=== PATIENT | female | born 1995 | race Caucasian/White ===

== ENCOUNTER 2018-11-04 21:53 | Emergency (ER) | payer OTHER ==
[2018-11-04 23:33] LABS: Basophils % (Auto) 0.3 % (0.0-1.8); Eosinophils # (Auto) 0.1 K/mm3 (0.0-0.4); Hemoglobin 13.1 gm/dl (10.1-14.3); Lymphocytes # (Auto) 2.9 K/mm3 (1.2-5.4); Lymphocytes % (Auto) 27.2 % (13.4-35.0); Mean Corpuscular HGB Conc 35 % (30-34); Mean Corpuscular Volume 83 fl (79-97); Monocytes # (Auto) 0.8 K/mm3 (0.0-0.8); Monocytes % (Auto) 7.7 % (0.0-7.3); Platelet Count 239 K/mm3 (140-440); Red Blood Count 4.56 M/mm3 (3.65-5.03); Red Cell Distribution Width 13.2 % (13.2-15.2)
[2018-11-04 23:51] LABS: Alanine Aminotransferase 19 units/L (7-56); Albumin 4.1 g/dL (3.9-5); BUN/Creatinine Ratio 16; Blood Urea Nitrogen 8 mg/dL (7-17); Calcium 9.5 mg/dL (8.4-10.2); Hemolysis Index 14
[2018-11-05 00:01] LABS: Bilirubin,Urine NEG (Negative); Blood,Urine NEG (Negative); Color,Urine Yellow (Yellow); Protein,Urine <15 mg/dL mg/dL (Negative); Urobilinogen,Urine < 2.0 mg/dL (<2.0); WBC,Urine < 1.0 /HPF (0.0-6.0)
[2018-11-05] MEDS ORDERED: TYLENOL PO ONE (00:55)
--- NOTE | 2018-11-05 03:11 | Ultrasound Report ---
OBSTETRIC ULTRASOUND INDICATION: Vaginal bleeding COMPARISON: No prior relevant imaging studies are available for comparison. TECHNIQUE: Transabdominal imaging was performed. FINDINGS: Single viable intrauterine is identified. lie is currently transverse. heart ra te is 145bpm. measurements are as follows: Biparietal diameter 3.1 cm, 15 weeks 5 days Head circumference 11.6 cm, 15 weeks 5 days Abdominal circumference 10.3 cm, 16 weeks 2 days Femur length 2.0 cm, 16 weeks 2 days Fetus is in the percentile for weight. Amniotic fluid index is within normal limits. No placental abnormalities are seen. There is a grade 0 posterior placenta. The cervix is closed with a length of 3.4 cm. CONCLUSION: Single viable intrauterine currently in transverse position with sonographic gestational ag e 15 weeks, 6 days. Amniotic fluid index is within normal limits. Cervix appears closed. Signer Name: Haider Torres MD Signed: 11/05/2018 3:07 AM Workstation Name: [id number]
--- NOTE | 2018-11-05 04:04 | Emergency Department Report ---
ED Female HPI - General Chief complaint: Abdominal Pain Stated complaint: 18WEEKS PREG. LOWER ABDOMINAL PAIN Time Seen by Provider: 11/05/18 00:40 Source: patient Mode of arrival: Ambulatory Limitations: No Limitations - History of Present Illness Initial comments: Patient is a A1 and running out female who is approximately 18 weeks gestation and presents to the ED with complaint of acute onset persistent pleuritic pain for last 24 hours after having sexual intercourse at home. Patient states that the pain has been persistent and worse with any movement. Patient denies vaginal bleeding, fever, chills, nausea, vomiting, diarrhea, dizziness, back pain, dysuria, urinary frequency and urgency, vaginal discharge, traumatic injury or heavy lifting. MD Complaint: pelvic pain -: Sudden, hour(s) (24) Location: suprapubic Radiation: non-radiating Severity: severe Severity scale (0 -10): 7 Quality: cramping, sharp, aching Consistency: constant Improves with: none Worsens with: intercourse, movement Associated Symptoms: denies other symptoms, abdominal pain. denies: vaginal discharge, nausea/vomiting, fever/chills, headaches, loss of appetite, dysuria, hematuria, rash, seizure, shortness of breath, syncope, weakness - Related Data Sexually active: Yes : 3 Para: 1 A: 1 Allergies Allergy/AdvReac Type Severity Reaction Status Date / Time No Known Allergies Allergy Unverified 11/04/18 22:59 ED Review of Systems ROS: Stated complaint: 18WEEKS PREG. LOWER ABDOMINAL PAIN Other details as noted in HPI Constitutional: denies: chills, fever Eyes: denies: eye pain, eye discharge, vision change ENT: denies: ear pain, throat pain Respiratory: denies: cough, shortness of breath, wheezing Cardiovascular: denies: chest pain, palpitations Endocrine: no symptoms reported Gastrointestinal: abdominal pain (suprapubic). denies: nausea, diarrhea Genitourinary: denies: urgency, dysuria, discharge Musculoskeletal: denies: back pain, joint swelling, arthralgia Skin: denies: rash, lesions Neurological: denies: headache, weakness, paresthesias Psychiatric: denies: anxiety, depression Hematological/Lymphatic: denies: easy bleeding, easy bruising ED Past Medical Hx - Past Medical History Previous Medical History?: No - Surgical History Past Surgical History?: No - Social History Smoking Status: Never Smoker ED Physical Exam - General Limitations: No Limitations General appearance: alert, in no apparent distress - Head Head exam: Present: atraumatic, normocephalic, normal inspection - Eye Eye exam: Present: normal appearance, PERRL, EOMI - ENT ENT exam: Present: normal exam, normal orophraynx, mucous membranes moist, TM's normal bilaterally, normal external ear exam - Neck Neck exam: Present: normal inspection, full ROM. Absent: tenderness - Respiratory Respiratory exam: Present: normal lung sounds bilaterally. Absent: respiratory distress, wheezes, rales, stridor, chest wall tenderness, accessory muscle use, decreased breath sounds, prolonged expiratory - Cardiovascular Cardiovascular Exam: Present: regular rate, normal rhythm, normal heart sounds. Absent: systolic murmur, diastolic murmur, rubs, gallop - GI/Abdominal GI/Abdominal exam: Present: soft, tenderness (suprapubic moderately), normal bowel sounds. Absent: guarding, rebound, hyperactive bowel sounds, hypoactive bowel sounds, organomegaly - Rectal Rectal exam: Present: deferred - Bi-manual exam: Present: other (Pelvic exam deferred, patient declined) - Extremities Exam Extremities exam: Present: normal inspection, full ROM, normal capillary refill - Back Exam Back exam: Present: normal inspection, full ROM. Absent: CVA tenderness (L), muscle spasm, vertebral tenderness - Neurological Exam Neurological exam: Present: alert, oriented X3, CN II-XII intact, normal gait. Absent: motor sensory deficit, reflexes normal - Psychiatric Psychiatric exam: Present: normal affect, normal mood - Skin Skin exam: Present: warm, dry, intact, normal color. Absent: rash ED Course Vital Signs 11/04/18 11/05/18 22:50 01:10 Temperature 98.1 F Pulse Rate 103 H Respiratory 18 16 Rate Blood Pressure 133/83 O2 Sat by Pulse 100 Oximetry - Reevaluation(s) Reevaluation #1: 11/05/18 04:01 Patient is alert and oriented 3 and is not in distress. Patient is to use any Tylenol in the ED and lab test results were reviewed and are unremarkable except for a significant amount of 20,812. Urinalysis is unremarkable. Transvaginal and pelvic ultrasound shows a single IUP currently in transverse position with the sonographic gestational age of 15 weeks and 6 days. The amniotic fluid index is within normal limits and the cervix appears closed. The heart rate is 145 bpm on reevaluation, patient's pain is well controlled with medications, and patient advised to maintain a complete pelvic rest and follow- up with our DAYCARE WORKER physician in 3-5 days for reevaluation. Patient advised to return to the ED immediately if symptoms get worse. ED Medical Decision Making - Lab Data Result diagrams: 11/04/18 23:08 11/04/18 23:08 - Radiology Data Radiology results: report reviewed, image reviewed Pelvic US: Single IUP in transverse position with sonographic gestational age of 15 weeks and 6 days. The amniotic fluid index is within normal limits and the cervix appears closed. The heart rate is 145 bpm. - Medical Decision Making Patient is alert and oriented 3 and is not in distress. Patient is to use any Tylenol in the ED and lab test results were reviewed and are unremarkable except for a significant amount of 20,812. Urinalysis is unremarkable. Transvaginal and pelvic ultrasound shows a single IUP currently in transverse position with the sonographic gestational age of 15 weeks and 6 days. The amniotic fluid index is within normal limits and the cervix appears closed. The heart rate is 145 bpm on reevaluation, patient's pain is well controlled with medications, and patient advised to maintain a complete pelvic rest and follow- up with our DAYCARE WORKER physician in 3-5 days for reevaluation. Patient advised to return to the ED immediately if symptoms get worse. - Differential Diagnosis Abdominal pain in ; Threatened miscarriage Critical care attestation.: If time is entered above; I have spent that time in minutes in the direct care of this critically ill patient, excluding procedure time. ED Disposition Clinical Impression: Threatened miscarriage, Abdominal pain during in second trimester Disposition: DC-01 TO HOME OR SELFCARE Is pt being admited?: No Does the pt Need Aspirin: No Condition: Stable Instructions: Abdominal Pain (ED), Threatened Miscarriage (ED) Additional Instructions: Take medications with food, drink plenty of fluids and follow up with your primary care physician or DAYCARE WORKER physician in 2 days for reevaluation. Maintain a complete pelvic rest with no sexual activity or heavy lifting until evaluated by the DAYCARE WORKER physician on Referrals: IRWIN GUTIERRES MD [Staff Physician] - 3-5 Days Time of Disposition: 04:07 Print Language: SPANISH
[2018-11-05 04:46] VITALS: BP 108/69
== END 2018-11-05 04:45 | disposition home or self-care (01) ==
LOC: ED 21:53
DX: O20.0 Threatened abortion (principal); Z3A.15 15 weeks gestation of pregnancy
CPT/HCPCS: 36415; 76805; 80053; 81001; 83690; 84702; 85025

== ENCOUNTER 2019-04-07 19:15 | Inpatient (IN) | payer OTHER ==
[2019-04-07] MEDS ORDERED: TERBUTALINE 1 MG/1 ML INJ SUB-Q PRN (22:37)
[2019-04-07] MEDS ORDERED: ePHEDrine SULFATE 50 MG/1 ML INJ IV PRN (22:37)
[2019-04-07] MEDS ORDERED: AMPICILLIN/NS 2 GM/100 ML 2 GM/100 ML BAG IV ONE (22:37)
[2019-04-07] MEDS ORDERED: LIDOCAINE (2%) 20 MG/1 ML VIAL 20 ML MDV INFILTRATI ONE (22:37)
[2019-04-07] MEDS ORDERED: fentaNYL 100 MCG/2 ML INJ IV PRN (22:37)
--- NOTE | 2019-04-07 22:45 | History and Physical Report ---
History of Present Illness Date of examination: 04/07/19 Date of admission: 04/07/2019 Chief complaint: Contractions History of present illness: 23 year old presents to L&D with contractions. Patient denies leaking of fluid or vaginal bleeding. Patient reports active movement. Patient received care at [facility] and she brings records with her. LMP 07/12/2018. EDC 04/18/19. significant for the following: history of delivery at 34 weeks with a prior , LSIL pap, history of previous infant with cardiac diagnosis (child from heart disease, possible congenital per chart). labs are as follows: O+, antibody screen negative, rubella immune, hepatitis B surface antigen negative, RPR negative, HIV negative, GC negative, CT negative, GBS unknown (no result on chart), glucose WNL, pap LSIL. 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 denies: chlamydia, gonorrhea, hepatitis B, hepatitis C, herpes, HIV, syphilis, trichomonas Family/Genetic History: diabetes Social history: lives with family, full code. denies: smoking, alcohol abuse, prescription drug abuse, IV drug use - Obstetrical History Expected Date of Delivery: 04/18/19 Actual Gestation: 38 Week(s) 3 Day(s) : 3 Para: 2 Hx # Term Pregnancies: 1 Number of Pregnancies: 1 Spontaneous Abortions: 0 Induced : 0 Number of Living Children: 1 Medications and Allergies Allergies Allergy/AdvReac Type Severity Reaction Status Date / Time No Known Allergies Allergy Verified 04/07/19 22:40 Active Meds: Active Medications Ephedrine Sulfate (Ephedrine Sulfate) 10 mg IV Q2M PRN PRN Reason: Hypotension Fentanyl (Sublimaze) 100 mcg IV Q2H PRN PRN Reason: Labor Pain Oxytocin/Sodium Chloride (Pitocin/Ns 20 Unit/1000ml Drip) 20 units in 1,000 mls @ 125 mls/hr IV DIRECT HILARY Lactated Ringer's (Lactated Ringers) 1,000 mls @ 125 mls/hr IV DIRECT HILARY Ampicillin Sodium (Ampicillin/Ns 2 Gm/100 Ml) 2 gm in 100 mls @ 100 mls/hr IV ONCE ONE; Protocol Stop: 04/07/19 23:36 Ampicillin Sodium (Ampicillin/Ns 1 Gm/50 Ml) 1 gm in 50 mls @ 100 mls/hr IV Q4HR HILARY; Protocol Terbutaline Sulfate (Brethine) 0.25 mg SUB-Q ONCE PRN PRN Reason: Hyperstimulation/Hypertonicity Review of Systems All systems: negative (contractions) - Physical Exam Abdomen: Positive: normal appearance, soft. Negative: distention, tenderness, guarding, rigidity Genitourinary (Female): Positive: normal external genitalia, normal perenium. Negative: perineal/vulvar lesions Vagina: Positive: normal moisture Uterus: Positive: enlarged. Negative: tender Anus/Rectum: Positive: normal perianal skin, hemorrhoids Extremities: Positive: normal. Negative: tenderness, edema - Obstetrical FHR: category 1 Uterine Contraction Monitor Mode: External Cervical Dilatation: 4 Cervical Effacement Percentage: 80 (BBOW) station: -2 Results All other labs normal. Assessment and Plan A: at 38 weeks, 3 days gestation. Active labor. GBS unknown. P: Admit. Continuous EFM. GBS prophylaxis. Anticipate .
[2019-04-07] MEDS ORDERED: LACTATED RINGERS 1,000 ML IV SCH (23:00)
[2019-04-07] MEDS ORDERED: OXYTOCIN 20 UNIT/1000ML DRIP 20 UNITS/1,000 ML BAG IV SCH (23:00)
[2019-04-08 00:23] LABS: Hematocrit 39.2 % (30.3-42.9); Hemoglobin 13.2 gm/dl (10.1-14.3); Mean Corpuscular HGB Conc 34 % (30-34); Mean Corpuscular Volume 85 fl (79-97); Platelet Count 193 K/mm3 (140-440); Red Blood Count 4.61 M/mm3 (3.65-5.03); Red Cell Distribution Width 14.2 % (13.2-15.2)
[2019-04-08 00:44] LABS: Albumin 3.6 g/dL (3.9-5); BUN/Creatinine Ratio 15; Blood Urea Nitrogen 6 mg/dL (7-17); Calcium 9.7 mg/dL (8.4-10.2); Hemolysis Index 109
[2019-04-08 02:22] LABS: Alanine Aminotransferase 14 units/L (7-56)
[2019-04-08 02:49] LABS: Uric Acid 4.8 mg/dL (3.5-7.6)
[2019-04-08] MEDS: AMPICILLIN/NS 1 GM/50 ML 1 GM/50 ML BAG IV SCH ×3 (04:52→13:42)
[2019-04-08] MEDS ORDERED: LIDOCAINE (2%) 20 MG/1 ML VIAL 20 ML MDV INFILTRATI ONE (08:30)
[2019-04-08] MEDS ORDERED: ePHEDrine SULFATE 50 MG/1 ML INJ IV PRN ×2 (08:30→15:34)
[2019-04-08] MEDS ORDERED: TERBUTALINE 1 MG/1 ML INJ IVP PRN (08:30)
[2019-04-08] MEDS ORDERED: TERBUTALINE 1 MG/1 ML INJ SUB-Q PRN (08:30)
--- NOTE | 2019-04-08 08:34 | Event Note ---
Date: 04/08/19 Cervix unchanged at last exam. Will augment labor with Pitocin.
[2019-04-08] MEDS ORDERED: OXYTOCIN DRIP 30 UNITS/500 ML BAG IV SCH (09:00)
[2019-04-08] MEDS ORDERED: OXYTOCIN 20 UNIT/1000ML DRIP 20 UNITS/1,000 ML BAG IV SCH (09:00)
[2019-04-08] MEDS: OXYTOCIN DRIP 30 UNITS/500 ML BAG IV SCH ×2 (10:08→10:40)
[2019-04-08 11:51] LABS: Hematocrit 38.4 % (30.3-42.9); Hemoglobin 12.8 gm/dl (10.1-14.3); Mean Corpuscular HGB Conc 33 % (30-34); Mean Corpuscular Volume 86 fl (79-97); Platelet Count 177 K/mm3 (140-440); Red Blood Count 4.49 M/mm3 (3.65-5.03)
[2019-04-08] MEDS ORDERED: NALOXONE 2 MG/2 ML INJ IV PRN (15:34)
--- NOTE | 2019-04-08 15:36 | Anesthesia Consultation ---
Anesthesia Consult and Med Hx Date of service: 04/08/19 - Airway Anesthetic Teeth Evaluation: Good ROM Head & Neck: Adequate Mental/Hyoid Distance: Adequate Mallampati Class: Class II Intubation Access Assessment: Probably Good - Pulmonary Exam CTA: Yes - Cardiac Exam Cardiac Exam: RRR - Pre-Operative Health Status ASA Pre-Surgery Classification: ASA2 Proposed Anesthetic Plan: Epidural - Pulmonary Hx Smoking: No Hx Asthma: No Hx Respiratory Symptoms: No SOB: No COPD: No Home Oxygen Therapy: No Hx Pneumonia: No Hx Sleep Apnea: No - Cardiovascular System Hx Hypertension: No Hx Coronary Artery Disease: No Hx Heart Attack/AMI: No Hx Angina: No Hx Percutaneous Transluminal Coronary Angioplasty (PTCA): No Hx Cardia Arrhythmia: No Hx Pacemaker: No Hx Internal Defibrillator: No Hx Valvular Heart Disease: No Hx Heart Murmur: No Hx Peripheral Vascular Disease: No - Central Nervous System Hx Neuromuscular Disorder: No Hx Seizures: No CVA: No Hx Back Pain: No Hx Psychiatric Problems: No - Gastrointestinal Hx Ulcer: No Hx Gastroesophageal Reflux Disease: No - Endocrine Hx Renal Disease: No Hx End Stage Renal Disease: No Hx Cirrhosis: No Hx Liver Disease: No Hx Insulin Dependent Diabetes: No Hx Non-Insulin Dependent Diabetes: No Hx Thyroid Disease: No Hx Hypothyroidism: No Hx Hyperthyroidism: No - Hematic Hx Anemia: No Hx Sickle Cell Disease: No - Other Systems Hx Alcohol Use: No Hx Substance Use: No Hx Cancer: No Hx Obesity: Yes
[2019-04-08] MEDS ORDERED: fentaNYL-BUPIV 2 MCG/ML-0.125% 200 MCG/100 ML BAG EPIDURAL SCH (16:00)
[2019-04-08] MEDS ORDERED: MAGNESIUM HYDROXIDE (MOM) ORAL LIQD UDC PO PRN (16:52)
[2019-04-08] MEDS ORDERED: WITCH HAZEL/ GLYCERIN PAD TP PRN (16:52)
[2019-04-08] MEDS ORDERED: LANOLIN/ZINC/DIMETHICONE (LANSINOH) 7 GM TP PRN (16:52)
--- NOTE | 2019-04-08 17:05 | Procedure Note ---
OB Delivery Note - Delivery Date of Delivery: 04/08/19 Surgeon: BESSY NICOLE Estimated blood loss: 200cc - Vaginal Delivery presentation: vertex Delivery position: OA Intrapartum events: none Delivery induction: none Delivery augmentation: rupture of membranes, pitocin Delivery monitor: external FHT, external uterine Route of delivery: Delivery placenta: spontaneous Delivery cord: 3 umbilical vessels Episiotomy: none Delivery laceration: none Anesthesia: none Delivery comments: Spontaneous vaginal delivery at 16:23 of liveborn female infant weighing 6 lb over intact perineum with apgars of 8/9. Nuchal cord times 1, manually reduced. Body cord. Baby placed skin to skin with mom immediately after . Spontaneous cry and respirations. Baby suctioned with bulb syringe and dried with warm towels. 3 vessel cord double clamped and cut after cessation of pulsation. Cord blood obtained. Spontaneous delivery of intact placenta and membranes by neely mechanism at 16:29. Pitocin to IV fluids after delivery of placenta. Fundus firm and midline. No lacerations noted. Vaginal sweep negative. Sponge count correct.
[2019-04-08] MEDS: HYDROcodone/ACETAMINOPHEN 5-325 MG TAB PO PRN (18:08)
[2019-04-09] MEDS: HYDROcodone/ACETAMINOPHEN 5-325 MG TAB PO PRN ×2 (00:40→21:19)
[2019-04-09] MEDS: IBUPROFEN 600 MG TAB PO SCH ×4 (06:21→17:44)
[2019-04-09 06:41] LABS: Hematocrit 36.2 % (30.3-42.9)
--- NOTE | 2019-04-09 10:13 | Progress Note ---
Assessment and Plan A: day 1 S/P spontaneous vaginal delivery. P: Continue current management. Subjective - Subjective Date of service: 04/09/19 Principal diagnosis: day 1 S/P Interval history: day 1 S/P spontaneous vaginal delivery. Doing well. Voiding without difficulty, tolerating a regular diet, ambulating well. Patient denies heavy bleeding, abdominal or leg pain, or dizziness. Patient reports: appetite normal, voiding normally, pain well controlled, flatus, ambulating normally, no dizzy ambulation, no nauseated [place]: doing well Objective - Vital Signs Latest vital signs: Vital Signs Temp Pulse Resp BP BP Pulse Ox 04/09/19 08:05 98.2 F 94 H 18 107/66 95 04/09/19 05:59 98.2 F 94 H 20 115/77 95 04/09/19 00:43 97.9 F 95 H 20 112/66 96 04/08/19 20:59 98.0 F 95 H 20 111/63 96 04/08/19 18:55 77 0 L 04/08/19 18:45 94 H 98 04/08/19 18:40 79 97 04/08/19 18:35 85 98 04/08/19 18:34 85 119/59 04/08/19 18:30 89 98 04/08/19 18:25 91 H 98 04/08/19 18:20 82 99 04/08/19 18:19 81 111/58 04/08/19 18:15 80 98 04/08/19 18:10 101 H 97 04/08/19 18:05 86 98 04/08/19 18:04 86 121/58 04/08/19 18:00 87 98 04/08/19 17:55 89 97 04/08/19 17:50 94 H 97 04/08/19 17:49 91 H 131/71 04/08/19 17:45 94 H 97 04/08/19 17:40 89 98 04/08/19 17:35 86 100 04/08/19 17:34 88 125/78 04/08/19 17:30 87 100 04/08/19 17:25 83 99 04/08/19 17:20 77 100 04/08/19 17:19 88 131/66 04/08/19 17:15 86 100 04/08/19 17:10 88 100 04/08/19 17:05 80 100 04/08/19 17:04 90 126/67 04/08/19 17:00 91 H 100 04/08/19 16:55 95 H 100 04/08/19 16:50 101 H 100 04/08/19 16:49 90 124/66 04/08/19 16:45 93 H 100 04/08/19 16:40 94 H 99 04/08/19 16:34 95 H 126/66 04/08/19 16:33 68 93 04/08/19 16:12 66 96 04/08/19 15:54 90 04/08/19 15:46 54 L 86 04/08/19 15:40 53 L 04/08/19 15:31 86 92 04/08/19 15:28 107 H 98 04/08/19 15:22 72 91 04/08/19 15:18 99 H 100 04/08/19 15:15 77 94 04/08/19 15:12 92 H 95 04/08/19 15:09 77 94 04/08/19 15:08 87 94 04/08/19 15:03 88 99 04/08/19 15:01 91 H 130/89 90 04/08/19 14:57 84 86 04/08/19 14:53 94 H 93 04/08/19 14:52 94 H 97 04/08/19 14:48 90 99 04/08/19 14:43 77 99 04/08/19 14:40 90 94 04/08/19 14:37 72 99 04/08/19 14:33 87 99 04/08/19 14:32 96 H 130/57 04/08/19 14:28 93 H 99 04/08/19 14:22 85 100 04/08/19 14:17 81 89 04/08/19 14:12 93 H 93 04/08/19 14:08 87 100 04/08/19 14:02 91 H 125/78 99 04/08/19 13:57 101 H 96 04/08/19 13:55 100 H 94 04/08/19 13:52 90 97 04/08/19 13:47 92 H 99 04/08/19 13:42 84 99 04/08/19 13:38 85 100 04/08/19 13:33 88 100 04/08/19 13:31 93 H 117/78 04/08/19 13:27 104 H 99 04/08/19 13:23 91 H 97 04/08/19 13:18 89 97 04/08/19 13:12 75 100 04/08/19 13:07 94 H 98 04/08/19 13:03 75 100 04/08/19 13:01 78 107/75 04/08/19 12:57 98 H 98 04/08/19 12:52 89 97 04/08/19 12:47 85 99 04/08/19 12:42 80 98 04/08/19 12:37 81 99 04/08/19 12:32 74 100 04/08/19 12:31 84 111/56 04/08/19 12:27 89 99 04/08/19 12:22 84 99 04/08/19 12:17 84 99 04/08/19 12:12 95 H 96 04/08/19 12:07 82 100 04/08/19 12:02 82 98 04/08/19 12:01 85 109/59 04/08/19 11:57 91 H 96 04/08/19 11:52 74 99 04/08/19 11:47 87 99 04/08/19 11:42 88 99 04/08/19 11:37 72 99 04/08/19 11:32 86 141/79 96 04/08/19 11:27 87 97 04/08/19 11:22 79 97 04/08/19 11:17 78 96 04/08/19 11:14 86 90 04/08/19 11:12 81 97 04/08/19 11:07 84 96 04/08/19 11:03 96 H 109/60 04/08/19 11:02 96 H 97 04/08/19 10:57 89 97 04/08/19 10:52 81 96 04/08/19 10:47 98.2 F 81 16 111/60 97 04/08/19 10:42 78 97 04/08/19 10:37 78 98 04/08/19 10:32 88 97 04/08/19 10:31 81 111/60 04/08/19 10:27 84 98 04/08/19 10:22 88 97 04/08/19 10:17 102 H 98 04/08/19 10:12 87 98 Intake and Output 04/08/19 04/09/19 04/09/19 23:59 07:59 15:59 Other: Weight 2850 kg Estimated Blood Loss 200 - Exam Cardiovascular: Present: Regular rate, Normal S1, Normal S2 Lungs: Present: Clear to auscultation Abdomen: Present: normal appearance, soft. Absent: distention, tenderness, guarding, rigidity Uterus: Present: normal, firm, fundal height below umbilicus. Absent: bogginess, tenderness Extremities: Present: normal. Absent: tenderness, edema
[2019-04-09] MEDS: DOCUSATE SODIUM 100 MG CAP PO SCH ×2 (10:21→21:19)
[2019-04-09] MEDS ORDERED: FLU VACC QUAD 2019-20 (3 YR UP)/PF 60 MCG/0.5 ML SYRINGE IM ONE (12:00)
[2019-04-10] MEDS: IBUPROFEN 600 MG TAB PO SCH ×2 (00:19→05:49)
[2019-04-10] MEDS ORDERED: TETANUS,DIPH,PERTUSS(ACELL) VACCINE 0.5 ML SYRINGE IM ONE (06:00)
[2019-04-10 08:46] VITALS: BP 109/71
--- NOTE | 2019-04-10 09:17 | Discharge Summary ---
Providers - Providers Date of Admission: 04/07/19 22:37 Date of discharge: 04/10/19 Attending physician: SALO PLUNKETT Primary care physician: SALO PLUNKETT Hospitalization Reason for admission: IUP at term Delivery: Episiotomy: none Laceration: none Other procedures: none complications: none Discharge diagnosis: other (S/P ) baby: female Hospital course: See admission H & P; OB delivery summary and PP progress notes Condition at discharge: Good Disposition: DC-01 TO HOME OR SELFCARE - Discharge Diagnoses (1) (normal spontaneous vaginal delivery) Status: Acute Plan - Provider Discharge Summary Activity: routine, no sex for 6 weeks, no heavy lifting 4 weeks, no strenuous exercise Diet: routine Instructions: routine Additional instructions: [] Smoking cessation referral if applicable(refer to patient education folder for contact #) [] Refer to [facility]'s [facility] Booklet Call your doctor immediately for: * Fever > 100.5 * Heavy vaginal bleeding ( >1 pad per hour) * Severe persistent headache * Shortness of breath * Reddened, hot, painful area to leg or breast - Follow up plan Follow up: SALO PLUNKETT MD [Primary Care Provider] - 6 Weeks
[2019-04-10] MEDS: DOCUSATE SODIUM 100 MG CAP PO SCH (09:46)
[2019-04-10] MEDS: HYDROcodone/ACETAMINOPHEN 5-325 MG TAB PO PRN (09:46)
== END 2019-04-10 12:21 | disposition home or self-care (01) | DRG 807 ==
LOC: TRG 19:15 → LD 22:37 → OB 04-08 21:10
PROVIDERS: ADMIT Obstetrics & Gynecology; ATTEND Obstetrics & Gynecology
PROC: 10E0XZZ Delivery of Products of Conception, External Approach (ICD-10-PCS; principal; 2019-04-08)
PROC: 3E0234Z Introduction of Serum, Toxoid and Vaccine into Muscle, Percutaneous Approach (ICD-10-PCS; 2019-04-10)
DX: O69.1XX0 Labor and delivery complicated by cord around neck, with compression, not applicable or unspecified (principal); Z37.0 Single live birth; O99.214 Obesity complicating childbirth; Z3A.38 38 weeks gestation of pregnancy; Z23 Encounter for immunization
CPT/HCPCS: 36415; 80053; 83615; 84550; 85014; 85018; 85027; 86850; 86900; 86901; 90471; 90686; 90715; 96360; 96361; 96365; 96366; 96374; G0378; G0008; J0290; J2590; J3010; J7120

== ENCOUNTER 2021-10-24 16:09 | Emergency (ER) | payer SELFPAY ==
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
[2021-10-24 17:21] LABS: Hemoglobin 14.1 gm/dl (10.1-14.3); Mean Corpuscular HGB Conc 33 % (30-34); Mean Corpuscular Volume 84 fl (79-97); Platelet Count 224 K/mm3 (140-440); Red Blood Count 5.11 M/mm3 (3.65-5.03); Red Cell Distribution Width 12.8 % (13.2-15.2)
[2021-10-24 17:48] LABS: Bilirubin,Urine NEG (Negative); Blood,Urine NEG (Negative); Color,Urine Straw (Yellow); Protein,Urine <15 mg/dL mg/dL (Negative); Urobilinogen,Urine < 2.0 mg/dL (<2.0)
[2021-10-24 17:49] LABS: HCG Qualitative,Urine Negative (Negative)
[2021-10-24 17:52] LABS: Alanine Aminotransferase 27 units/L (7-56); Albumin 4.3 g/dL (3.9-5); BUN/Creatinine Ratio 9; Blood Urea Nitrogen 7 mg/dL (7-17); Calcium 9.1 mg/dL (8.4-10.2); Hemolysis Index 8
[2021-10-24 17:54] LABS: Calcium Oxalate Crystals,Urine FEW
[2021-10-24] MEDS ORDERED: ONDANSETRON 4 MG/2 ML INJ IV ONE (18:16)
[2021-10-24] MEDS ORDERED: MORPHINE 2 MG/1 ML INJ IM ONE (18:16)
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
--- NOTE | 2021-10-24 18:59 | XRay Report ---
Left shoulder 3 views INDICATION: Left shoulder pain IMPRESSION: No fracture or subluxation. Signer Name: Eliecer Leahy MD Signed: 10/24/2021 6:54 PM Workstation Name: [email or web address]
[2021-10-24] MEDS ORDERED: HYDROmorphone 1 MG/1 ML INJ IV ONE ×2 (19:14→20:31)
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
[2021-10-24] MEDS ORDERED: CYCLOBENZAPRINE 10 MG TAB PO ONE (20:39)
[2021-10-24 21:39] VITALS: BP 140/96
== END 2021-10-24 21:39 | disposition home or self-care (01) ==
LOC: ED 16:09
DX: R51.9 Headache, unspecified (principal); V89.2XXA Person injured in unspecified motor-vehicle accident, traffic, initial encounter; Y93.89 Activity, other specified; Y92.89 Other specified places as the place of occurrence of the external cause; Y99.8 Other external cause status
CPT/HCPCS: 36415; 70450; 71260; 72125; 73030; 73070; 73100; 74177; 80053; 81001; 81025; 82550; 83690; 84484; 85027; 87086; 96372; 96374; 96375; 96376; 99285; J1170; J2270; J2405; Q9967